=== PATIENT | male | born 2000 | race Caucasian/White ===

== ENCOUNTER 2018-01-17 00:51 | Emergency (ER) | payer OTHER ==
[~2018-01-17] VITALS: Ht 180.3 cm; Wt 99.8 kg
[2018-01-17 00:58] VITALS: BP 146/77
--- NOTE | 2018-01-17 01:00 | NUR ---
PT AMBULATED TO ED BED 8
[2018-01-17] MEDS ORDERED: KETOROLAC 30 MG/ML VIAL IM ONE (01:25)
--- NOTE | 2018-01-17 01:30 | NUR ---
PT PRESESNT TO ED WITH C/O JOINTS PAIN X 3 DAYS. TODAY PAIN GET WORSE. DENIES PMH. NO TRAUMA NOR INJURY. AAO X4, AMBULATORY WITH STDEAY GAIT. RESPIRATIONS EVEN AND UNLABORED. VSS. ER MD MADE AWARE OF PT STATUS.
[2018-01-17 02:04] VITALS: BP 118/68
--- NOTE | 2018-01-17 02:04 | NUR ---
Patient discharged with v/s stable. Written and verbal after care instructions given and explained. Patient alert, oriented and verbalized understanding of instructions. Ambulatory with steady gait. All questions addressed prior to discharge. ID band removed. Patient advised to follow up with PMD. Rx of NAPROSYN 500 MG given. Patient educated on indication of medication including possible reaction and side effects. Opportunity to ask questions provided and answered.
== END 2018-01-17 02:04 | disposition home or self-care (01) ==
LOC: MED 00:51
DX: M79.1 Myalgia (principal); M54.5 Low back pain; M79.602 Pain in left arm; M79.601 Pain in right arm; M79.605 Pain in left leg; M79.604 Pain in right leg; I10 Essential (primary) hypertension
CPT/HCPCS: 96372; 99283; J1885

== ENCOUNTER 2021-11-08 11:20 | Emergency (ER) | payer MEDICAID, OTHER ==
[~2021-11-08] VITALS: Ht 180.3 cm; Wt 103.0 kg
[2021-11-08 11:27] VITALS: BP 138/81
[2021-11-08] MEDS ORDERED: TETRACAINE HCL/PF 0.5% OPTH 4 ML BTL OP ONE (12:35)
[2021-11-08] MEDS ORDERED: FLUORESCEIN OPTH STRIP 1 MG OP ONE ×2 (12:35)
[2021-11-08] MEDS ORDERED: POLY10SO OP (13:14)
== END 2021-11-08 13:45 | disposition home or self-care (01) ==
LOC: MED 11:20
DX: H10.9 Unspecified conjunctivitis (principal); I10 Essential (primary) hypertension; Z79.2 Long term (current) use of antibiotics
CPT/HCPCS: 99283